=== PATIENT | female | born 2000 | race Caucasian/White ===

== ENCOUNTER 2022-09-30 17:35 | Emergency (ER) | payer BC, SELFPAY ==
[2022-09-30 18:05] VITALS: BP 133/84; PULSE 107; RESP 16; TEMP 36.9; O2SAT 100; BMI 25.5
--- NOTE | 2022-09-30 18:25 | ED_ITS ---
HPI - General Adult General Chief complaint: Psychiatric Problem/Disorder Stated complaint: Mental Health-Depression,Self-Harm,Substance Abuse Time Seen by Provider: 09/30/22 18:15 Source: patient Mode of arrival: ambulatory Limitations: no limitations History of Present Illness HPI narrative: 21-year-old female coming in today concerned about her anxiety depression. She states that she feels that she simply is not getting better and she is stagnant. 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 She feels overwhelmed and sad. She denies any suicidal thoughts. She has no history of suicide att empts. She hoped that we would have other resources for her. She is on venlafaxine and buspirone as well as hydroxyzine. She sees her therapist at school once a week. She does not have a psychiatrist. She states that she has had several antidepressants in the past and has had genetic testing done as well. She denies any tobacco use. She states that she drinks socially with her friends. She states that she smokes marijuana occasionally. Denies all other drug use. States that she is here today because her mom felt that she was sad and wanted her to come in. Related Data Allergies Allergy/AdvReac Type Severity Reaction Status Date / Time No Known Drug Allergies Allergy Verified 09/30/22 18:09 Review of Systems Status of ROS: Reports: 10 or more systems reviewed and unremarkable except as noted in History and below [facility] Social History Smoking Status: Never smoker Do you use any of these nicotine containing products: None How often do you have a drink containing alcohol: 2-4 times a month AUDIT-C Alcohol total score: 2 Non-prescribed substance use: marijuana (any form) Exam Narrative: Exam Narrative: Well-nourished well-developed patient in no acute distress. Alert and oriented. Answers questions appropriately. She is a bit melancholy. Thoughts are goal oriented and rational. No tangential or magical thinking noted. Patient speaks in full sentences without needing to catch her breath. HEENT: Normocephalic atraumatic. Pupils are equally round reactive to light. Extraocular muscles are intact. Conjunctivae are moist without any icterus noted. Moist mucous membranes. Cardiovascular: Heart is regular rate and rhythm S1 and S2 are present without any murmurs. Lungs: Clear to auscultation bilaterally no wheezes rhonchi or rales are appreciated. Patient takes deep breaths without any discomfort. Abdomen: Soft and nontender nondistended with normal bowel sounds. Extremities: Bilateral lower extremities are without edema. Skin: Well perfused without any obvious rashes. Const: Vital Signs, click to edit/add: Vital Signs - 24 hr 09/30/22 18:05 Temperature 98.4 F Pulse Rate [Left P ulse Oximeter] 107 H Respiratory Rate 16 Blood Pressure [Ri ght Upper Arm] 133/84 Pulse Oximetry 100 Oxygen Delivery Me thod Room Air Course Course Hospital Course: We discussed her options today. The patient feels like she could benefit from talking to her counselor so a DEC assessment was requested. Unfortunately there was no DEC availability for 4-5 hours. I discussed this with patient and Mom. They were in agreement that they did not want a wait that long. We did give a handout with resources that they can call for mental health we discussed continuing with therapy and asked and her therapist for resources as well. Mom and patient felt safe going home at this time and had no other concerns. Vital Signs Vital signs: Initial Vital Signs Temperature 98.4 F 09/30/22 18:05 Temperature Source Temporal Artery Scan 09/30/22 18:05 Pulse Rate 107 H 09/30/22 18:05 Respiratory Rate 16 09/30/22 18:05 Blood Pressure 133/84 09/30/22 18:05 Blood Pressure Mean 100 09/30/22 18:05 Blood Pressure Position Sitting 09/30/22 18:05 Pulse Oximetry 100 09/30/22 18:05 Oxygen Delivery Method 09/30/22 18:05 Vital Signs Temperature 98.4 F 09/30/22 18:05 Pulse Rate 107 H 09/30/22 18:05 Respiratory Rate 16 09/30/22 18:05 Blood Pressure 133/84 09/30/22 18:05 Pulse Oximetry 100 09/30/22 18:05 Oxygen Delivery Method 09/30/22 18:05 Temperature 98.4 F 09/30/22 18:05 Pulse Rate 107 H 09/30/22 18:05 Respiratory Rate 16 09/30/22 18:05 Blood Pressure 133/84 09/30/22 18:05 Pulse Oximetry 100 02/18/23 18:05 Oxygen Delivery Method 09/30/22 18:05 Medical Decision Making MDM Narrative Medical decision making narrative: Depression and anxiety. Patient currently under care of a therapist and medical management. Handout given for further mental health resources. Again patient not having any thoughts of self-harm. Safe to go home with mom at this time. Discharge Plan Discharge Clinical Impression: Anxiety, Depression Patient Disposition: Home w/ Parent or Adult Condition: Stable Stand Alone Forms: [employer] Info Instructions
== END 2022-09-30 19:36 | disposition home or self-care (01) ==
PROVIDERS: Emergency Provider Family Medicine; PCP Family Medicine
DX: F32.A Depression, unspecified (principal); F41.8 Other specified anxiety disorders
CPT/HCPCS: 99282; 99283